=== PATIENT | female | born 1995 | race Caucasian/White ===

== ENCOUNTER 2017-11-04 06:01 | Emergency (ER) | payer BC ==
[2017-11-04] MEDS ORDERED: KETOROLAC TROMETHAMINE INJ/PF 30 MG/1 ML SDV IV ONE (07:08)
--- NOTE | 2017-11-04 07:12 | ER Document Report ---
ED General - General Chief Complaint: Upper Abdominal Pain Stated Complaint: SIDE/BACK PAIN Time Seen by Provider: 11/04/17 06:48 - HPI Notes: 22-year-old female presents with pleuritic back pain. Patient describes 1-2 days gradual onset pleuritic back and flank pain, right side. Nonradiating. Some mild shortness of breath. No fever, chills or sweats. No runny nose congestion. She is concerned because her mother had a blood clot pneumonia when she was younger. Nonradiating. No other modifying factors, no other associated symptoms, no other provocative or palliative factors. - Related Data Allergies/Adverse Reactions: No Known Allergies Allergy (Verified 11/04/17 06:28) Past Medical History - Social History Smoking Status: Never Smoker Frequency of alcohol use: Social Drug Abuse: None Family History: Reviewed & Not Pertinent Patient has suicidal ideation: No Patient has homicidal ideation: No - Past Medical History Cardiac Medical History: Reports: Hx Hypertension Pulmonary Medical History: Reports: Hx Asthma Renal/ Medical History: Denies: Hx Peritoneal Dialysis Past Surgical History: Reports: Hx Oral Surgery - wisdom teeth Review of Systems - Review of Systems Notes: Review of systems as in the history of present illness, otherwise negative x 10 systems. Physical Exam - Vital signs Vitals: Temp Pulse Resp BP Pulse Ox 100.0 F 94 16 133/79 H 97 11/04/17 06:03 11/04/17 06:03 11/04/17 06:03 11/04/17 06:03 11/04/17 06:03 - Notes Notes: General: Well developed . HEENT: Normocephalic, atraumatic. Pupils equal round reactive to light. No JVD. Chest: No trauma. Respiratory: Good air exchange, normal excursion. Cardiac: Regular rhythm. No murmurs or gallops. Abdomen: Soft, benign. Nondistended. Nontender. Back: No asymmetry or gross abnormality. Motor: Grossly normal power and tone. Neurologic: Alert, nonfocal. Cranial nerves II-12 are intact. Sensation intact. Vascular: Well perfused. Normal peripheral pulses. Skin: No petechiae or purpura. Course - Re-evaluation Re-evalutation: 11/04/17 07:10 Well-appearing female with pleuritic thoracic pain. The use of estrogens. However, she is not PERC negative given her minimal elevation in heart rate. Suspect this is pleurisy or costochondritis. But will obtain d-dimer to evaluate for low risk pulmonary embolism, check chest x-ray to exclude pneumonia or pneumothorax. Treat pain, check basic labs and reassess. 11/04/17 15:51 Plain films are normal, d-dimer is normal effectively excluding venous thromboembolic disease and is otherwise low risk patient. Chest x-ray unremarkable. Patient received NSAIDs, as had modest improvement, discharged to follow-up closely with her primary care physician. - Vital Signs Vital signs: Temp Pulse Resp BP Pulse Ox 98.3 F 85 16 126/68 H 99 11/04/17 09:13 11/04/17 09:13 11/04/17 09:13 11/04/17 09:13 11/04/17 09:13 - Laboratory Result Diagrams: 11/04/17 07:37 11/04/17 07:37 Laboratory results interpreted by me: 11/04/17 07:37 WBC 12.1 H Discharge - Discharge Clinical Impression: Chest pain Qualifiers: Chest pain type: unspecified Qualified Code(s): R07.9 - Chest pain, unspecified Condition: Good Disposition: HOME, SELF-CARE Instructions: Chest Wall Pain ([facility]) Prescriptions: Naproxen [Naprosyn] 500 mg PO Q12 PRN #10 tablet PRN Reason:
[2017-11-04 07:53] LABS: HEMATOCRIT 41.9 % (36.0-47.0); HEMOGLOBIN 14.5 g/dL (12.0-15.5); MEAN CORPUSCULAR HEMOGLOBIN 28.8 pg (27.0-33.4); MEAN CORPUSCULAR HGB CONC 34.6 g/dL (32.0-36.0); MEAN CORPUSCULAR VOLUME 83 fl (80-97); PLATELET COUNT 233 10^3/uL (150-450); RED BLOOD COUNT 5.03 10^6/uL (3.72-5.28); RED CELL DISTRIBUTION WIDTH 13.7 % (11.5-14.0); WHITE BLOOD COUNT 12.1 10^3/uL (4.0-10.5)
[2017-11-04 08:20] LABS: ANION GAP 13 (5-19); BLOOD UREA NITROGEN 7 mg/dL (7-20); CALCIUM 9.8 mg/dL (8.4-10.2); CARBON DIOXIDE 27 mmol/L (22-30); CHLORIDE 103 mmol/L (98-107); GLUCOSE 97 mg/dL (75-110); POTASSIUM 4.1 mmol/L (3.6-5.0); SODIUM 142.9 mmol/L (137-145)
--- NOTE | 2017-11-04 08:28 | RADIOLOGY REPORT (SQ) ---
EXAM DESCRIPTION: CHEST 2 VIEWS COMPLETED DATE/TIME: 11/04/2017 7:42 am REASON FOR STUDY: Chest Pain COMPARISON: None. EXAM PARAMETERS: NUMBER OF VIEWS: two views TECHNIQUE: Digital Frontal and Lateral radiographic views of the chest acquired. RADIATION DOSE: NA LIMITATIONS: none FINDINGS: LUNGS AND PLEURA: No acute infiltrates. Blunting of costophrenic angles. The possibility of pleural thickening or effusions not exclude MEDIASTINUM AND HILAR STRUCTURES: No masses or contour abnormalities. HEART AND VASCULAR STRUCTURES: The heart is normal with normal pulmonary vasculature. BONES: Mid dorsal scoliosis convex right. HARDWARE: None in the chest. OTHER: No other significant finding. IMPRESSION: Bilateral pleural thickening or effusions. Otherwise, no acute disease. TECHNICAL DOCUMENTATION: JOB ID: [id number] [employer] ([employer] All Rights Reserved Reading location - IP/workstation name: [email or web address]
[2017-11-04 09:16] VITALS: BP 126/68
== END 2017-11-04 09:16 | disposition home or self-care (01) ==
LOC: ER 06:01
DX: R07.81 Pleurodynia (principal); M54.6 Pain in thoracic spine; R10.9 Unspecified abdominal pain; R10.10 Upper abdominal pain, unspecified; I10 Essential (primary) hypertension; J45.909 Unspecified asthma, uncomplicated; R06.02 Shortness of breath
CPT/HCPCS: 99284; 96374; 36415; 85027; 81025; 80048; 85379; 71046; J1885